=== PATIENT | male | born 1965 | race Caucasian/White ===

== ENCOUNTER 2017-02-02 17:38 | Emergency (ER) | payer BC, OTHER ==
[2017-02-02] MEDS ORDERED: Ketorolac Tromethamine 60 MG/2 ML VIAL ONE (18:38)
[2017-02-02] MEDS ORDERED: Diazepam 5 MG TAB ONE (18:38)
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
== END 2017-02-02 19:07 | disposition home or self-care (01) ==
LOC: ERS 17:38
DX: S13.9XXA Sprain of joints and ligaments of unspecified parts of neck, initial encounter (principal); M48.02 Spinal stenosis, cervical region; F32.9 Major depressive disorder, single episode, unspecified; V43.52XA Car driver injured in collision with other type car in traffic accident, initial encounter
CPT/HCPCS: 72125; 96372; J1885

== ENCOUNTER 2019-12-07 07:25 | Outpatient (CLI) | payer BC ==
--- NOTE | 2019-12-07 09:29 | RAD ---
CERVICAL SPINE 5 VIEWS INCLUDING FLEXION AND EXTENSION LATERAL VIEWS: HISTORY: Cervical spondylosis with myelopathy, bilateral leg weakness, and stumbling. COMPARISON: CT cervical spine 02/02/2017. FINDINGS: Anterior cervical fusion changes at C5, C6, and C7. Generalized spondylosis with disk-osteophytosis and facet arthrosis. No evidence for abnormal translation between flexion and extension. No prevert ebral soft tissue swelling. Portions of C1 and the odontoid are obscured on the AP open mouth view a nd C7 and T1 are partially obscured on the lateral views. IMPRESSION: Cervical spondylosis. Anterior cervical fusion changes at C5, C6, and C7. POS: [facility]
--- NOTE | 2019-12-07 10:43 | MRI ---
CERVICAL SPINE MRI WITHOUT CONTRAST: DATE: 12/07/2019. HISTORY: Weakness and numbness, radiculopathy, prior cervical spine surgery. TECHNIQUE: Multiplanar, multisequence MR imaging of the cervical spine is provided without contrast. FINDINGS: The sagittal STIR imaging demonstrates edematous degenerative end plate change involving the anterior C3 inferior end plate and the posterior C7 inferior end plate. No prevertebral soft tissue swelling . No anterolisthesis or retrolisthesis. Anterior diskectomy and fusion hardware are present at C5-6 and C6-7. C2-3: Facet and uncovertebral osteophyte formation noted, right greater than left. There is disk sp siri narrowing and disk desiccation. No significant central canal stenosis. Mild right neural forami nal stenosis. C3-4: There is disk space narrowing with disk desiccation, mild disk bulge, and mild central canal s tenosis. There is anterior osteophyte formation. Bilateral facet and uncovertebral osteophyte forma tion present with mild left and moderate right neural foraminal stenosis. C4-5: There is disk space narrowing with disk desiccation and disk bulge. There is a small central disk protrusion effacing the ventral thecal sac with a mild degree of central canal stenosis. Bilate ral facet and uncovertebral osteophyte formation noted, right greater than left. Mild bilateral neur al foraminal stenosis. C5-6: Mild bilateral facet hypertrophy with no significant central canal or neural foraminal stenosi s. C6-7: Bilateral facet and uncovertebral osteophyte formation. No central canal stenosis. Moderate right and mild left neural foraminal stenosis. C7-T1: There is disk space narrowing with disk desiccation and disk bulge effacing the ventral theca l sac. There is moderate central canal stenosis. Bilateral facet and uncovertebral osteophyte forma tion causes severe bilateral neural foraminal stenosis, right greater than left. There is volume loss involving the cervical cord at the C5-6 and C6-7 levels suggesting myelomalacia. IMPRESSION: Postoperative and degenerative change as detailed above. No significant stenosis is at the C6-7 leve l where there is significant central canal and bilateral neural foraminal stenosis. POS: [facility]
== END 2019-12-07 07:26 | disposition home or self-care (01) ==
LOC: TBSIIMAG 07:25
PROVIDERS: ATTEND Neurological Surgery
DX: M47.12 Other spondylosis with myelopathy, cervical region (principal); M48.02 Spinal stenosis, cervical region; Z98.1 Arthrodesis status
CPT/HCPCS: 72050; 72141

== ENCOUNTER 2019-12-08 21:08 | Emergency (ER) | payer BC ==
[2019-12-08 21:56] LABS: #Eosinphils 0.8 thou/uL (0.0-0.7); #Lymphocytes 1.6 thou/uL (1.20-3.40); #Monocytes 0.6 thou/uL (0.11-0.59); #Neutrophils 4.7 thou/uL (1.40-6.50); %Basophils 0.4 % (0.0-1.0); %Eosinophils 10.8 % (0.0-10.0); %Lymphocytes 20.4 % (21.0-51.0); %Monocytes 8.2 % (0.0-10.0); %Neutrophils 60.2 % (42.0-75.0); Hemoglobin 13.8 g/dL (14.0-18.0); Mean Corpuscular HGB CONC 33.9 g/dL (32.0-36.0); Mean Corpuscular Hemoglobin 31.4 pg (27.0-31.0); Mean Corpuscular Volume 92.8 fL (78.0-98.0); Mean Platelet Volume 6.9 fL (7.4-10.4); Platelet Count 261 thou/uL (130-400); RBC Distribution Width 11.9 % (11.5-14.5); White Blood Cell (WBC) Count 7.8 thou/uL (4.8-10.8)
[2019-12-08 22:15] LABS: ALT (SGPT) 16 U/L (8-55); AST (SGOT) 21 U/L (5-34); Albumin 4.2 g/dL (3.5-5.0); Alkaline Phosphatase 112 U/L (40-110); Anion Gap 14 mmol/L (10-20); BUN (Urea Nitrogen) 20 mg/dL (8.4-25.7); Bilirubin, Total 0.5 mg/dL (0.2-1.2); CK (CPK) 80 U/L (30-200); Calc. Creatinine Clearance 0 mL/min (70-130); Carbon Dioxide 27 mmol/L (22-29); Chloride 100 mmol/L (98-107); Estimated GFR-MDRD 37; Globulin 2.9 g/dL (2.4-3.5); Glucose 95 mg/dL (70-105); Potassium 4.1 mmol/L (3.5-5.1); Protein, Total 7.1 g/dL (6.0-8.3); Sodium 137 mmol/L (136-145)
--- NOTE | 2019-12-08 23:20 | CT ---
CT BRAIN WITHOUT CONTRAST: HISTORY: Fall, headache, neck pain COMPARISON: 11/05/2012 FINDINGS: No evidence of acute infarct, hemorrhage, midline shift or abnormal extra-axial fluid collections is seen. The ventricular size is appropriate and the basilar cisterns are patent. The bony calvarium is intact. The visualized paranasal sinuses and mastoid air cells are well aerated. IMPRESSION: No CT evidence of acute intracranial process.
== END 2019-12-08 23:24 | disposition home or self-care (01) ==
LOC: ERS 21:08
DX: E86.0 Dehydration (principal); F32.9 Major depressive disorder, single episode, unspecified; Z79.899 Other long term (current) drug therapy
CPT/HCPCS: 36415; 70450; 80053; 82550; 84484; 85025; 93005; 96360

== ENCOUNTER 2020-01-05 07:29 | Outpatient (CLI) | payer BC ==
--- NOTE | 2020-01-05 09:26 | MRI ---
MRI THORACIC SPINE WITHOUT CONTRAST: Date: 01/05/2020 INDICATION: Thoracic stenosis. Back pain. FINDINGS: Postoperative changes are noted in the lower cervical spine with plate and screws transfixing C5, C6, and C7 levels. The thoracic vertebra maintain normal height and alignment. Thoracic vertebral bodies exhibit normal signal. No edema. There is disc protrusion at C7-T1 which is incompletely evaluated on this study. This does appear to compress the anterior cord as seen on the sagittal image with central canal stenosis. At T1-T2, there is a mild disc bulge flattening the thecal sac. The anterior subarachnoid space is pr eserved with no evidence of cord impingement. At T2-T3, slightly more prominent diffuse disc bulge is seen which abuts the anterior cord. This is s lightly more pronounced to the right and there is evidence of right foraminal encroachment and narrow ing. Minimal disc bulge paracentrally on the left at T6-T7 flattens the anterior thecal sac on the left. N o cord impingement or central canal stenosis. At T9-T10, there is a small focal protrusion paracentrally on the left flattening the anterior thecal sac on the left and extending in the subarticular zone. No significant cord impingement. No other significant bulge or protrusion seen. Thoracic cord signal appears normal. IMPRESSION: Mild disc bulge/protrusions at several levels as described above. There is evidence of cord compressi on at C7-T1. Disc bulge abuts the cord at T2-T3 as described above. POS: [facility]
--- NOTE | 2020-01-05 09:38 | MRI ---
MRI LUMBAR SPINE WITHOUT CONTRAST: Date: 01/05/2020 INDICATION: Myelopathy. Back pain. FINDINGS: Lumbar vertebra maintain normal height and alignment. Vertebral body signal is normal. There are dege nerative disc changes, most prominent at L5-S1 with disc narrowing and degenerative end plate changes at this level. The other disc spaces are preserved with mild degenerative signal changes. L1-2: No significant disc bulge. Mild to moderate facet hypertrophy. No significant central canal or foraminal stenosis. L2-3: Mild diffuse disc bulge flattens the thecal sac. Moderate facet arthrosis and hypertrophy. The se changes compress the thecal sac resulting in mild to moderate central canal stenosis. No significa nt foraminal stenosis apparent L3-4: Mild diffuse disc bulge. Moderate facet hypertrophy with posterior epidural fat. These changes compress the thecal sac resulting in mild to moderate central canal stenosis. No significant foramin al stenosis. L4-5: Diffuse disc bulge. Moderate facet hypertrophy with posterior epidural fat. Mild central canal stenosis. Bilateral foraminal stenosis secondary to broad based disc bulge extending into the forami nal zones and the associated facet hypertrophy. L5-S1: Broad based disc bulge flattens the anterior thecal sac. Moderate facet hypertrophy. No signi ficant central canal stenosis. A disc osteophyte complex projects to the right and does encroach into the right foramina and appears to displace the exiting right L5 nerve root. IMPRESSION: Degenerative disc changes at each level as detailed above. POS: [facility]
== END 2020-01-05 07:30 | disposition home or self-care (01) ==
LOC: BICMRI 07:29
PROVIDERS: ATTEND Neurological Surgery
DX: M48.04 Spinal stenosis, thoracic region (principal); G95.9 Disease of spinal cord, unspecified; M50.23 Other cervical disc displacement, cervicothoracic region; M51.24 Other intervertebral disc displacement, thoracic region; M51.36 Other intervertebral disc degeneration, lumbar region; M51.37 Other intervertebral disc degeneration, lumbosacral region; G95.20 Unspecified cord compression
CPT/HCPCS: 72146; 72148

== ENCOUNTER 2020-02-17 06:55 | Day surgery (SDC) | payer BC ==
[2020-02-16 08:53] VITALS: BMI 25.0
[2020-02-17 08:40] VITALS: BP 125/81; TEMP 97.8
--- NOTE | 2020-02-17 09:12 | RAD ---
Cervical myelogram: 02/17/2020 HISTORY: Prior cervical spine surgery, bilateral upper extremity radiculopathy, bilateral lower extre mity weakness, clumsiness FINDINGS: Informed consent obtained prior to the procedure. [employer] imaging of the lumbar spine demonst rates disc space narrowing with degenerative endplate change and anterior osteophyte formation at L5-S1, and to a lesser degree, L4-5. [employer] imaging of the cervical spine demonstrates anterior discec jason and fusion hardware at C5-6/C6-7. There is disc space narrowing with degenerative endplate change and anterior osteophyte formation at C4-5 and C7-T1. Skin overlying the lumbar spine was prepped and draped in normal sterile fashion. Skin was anesthetiz ed at the L4 level with 1% buffered lidocaine. With intermittent fluoroscopic guidance, a 22-gauge spinal needle is advanced into the thecal sac and removal of the stylet yields clear cerebrospinal fl uid. Approximately 10 cc of [id number]-[id number] was injected, outlining nerve roots of the cauda equina and filling the thecal sac. Needle was then removed. The patient's head was tilted down to extend contras t media into the cervical region. The patient tolerated the procedure well. Exposure data: 564 mcg/sq m IMPRESSION: Successful cervical spine myelogram as detailed above.
[2020-02-17] MEDS ORDERED: Iopamidol 300 61% 50 ML VIAL FS ONE (09:23)
--- NOTE | 2020-02-17 11:22 | CT ---
CT myelogram cervical spine: 02/17/2020 HISTORY: Lower extremity weakness and clumsiness, bilateral upper extremity radiculopathy/finger numb ness TECHNIQUE: Axial CT imaging obtained at 2.5 mm intervals through the cervical spine following the adm inistration of intrathecal contrast media. Coronal and sagittal reformatted imaging obtained. FINDINGS: There is moderate degenerative change at the atlantoaxial interspace. The craniocervical ju nction is intact. There is mild retrolisthesis at C3-4 measuring in the 2 mm range. Mild anterolisthesis at C4-5 noted measuring in the 3 mm range. Imaged lung apices demonstrate no acute findings. The C1 ring, the dens, and the occipital condyles appear intact. Anterior discectomy and fusion hardware is present at the C5-6/C6-7 levels. C2-3: No significant central canal or neural foraminal stenosis. C3-4: There is disc space narrowing with mild disc bulge partially effacing the ventral thecal sac an d leading to a mild degree of central canal stenosis. There is a triangular osseous density along the anterior inferior corner of the C3 vertebral body which suggest an old fracture with associated o steophytosis. Mild bilateral uncovertebral osteophyte formation with mild bilateral neural foraminal stenosis noted. C4-5: Minimal disc bulge with partial effacement of the ventral thecal sac and no significant central canal or neural foraminal stenosis. C5-6: A small disc osteophyte complex is present with partial effacement of the ventral thecal sac an d mild central canal stenosis. No significant neural foraminal stenosis. C6-7: There is bilateral uncovertebral osteophyte formation, right greater than left, with moderate b ilateral neural foraminal stenosis, right greater than left. Small posterior left paracentral osteophyte formation noted with a mild/moderate degree of central canal stenosis. C7-T1: Bilateral uncovertebral osteophyte formation noted with severe bilateral neural foraminal sten osis. There is disc space narrowing and degenerative endplate change with anterior osteophyte formation. Disc osteophyte complex present with moderate central canal stenosis. No acute osseous abnormality. No worrisome lytic or blastic bone lesion. IMPRESSION: Postoperative and degenerative changes within the cervical spine as above.
== END 2020-02-17 09:42 | disposition home or self-care (01) ==
LOC: RAD 06:55
PROVIDERS: ATTEND Neurological Surgery
PROC: B02B1ZZ Computerized Tomography (CT Scan) of Spinal Cord using Low Osmolar Contrast (ICD-10-PCS; principal; 2020-02-17)
DX: M47.12 Other spondylosis with myelopathy, cervical region (principal); M48.02 Spinal stenosis, cervical region; I10 Essential (primary) hypertension; F32.9 Major depressive disorder, single episode, unspecified
CPT/HCPCS: 62302; 72126; Q9967

== ENCOUNTER 2025-03-03 15:05 | Outpatient (CLI) | payer BC | END 2025-03-03 15:06 | disposition home or self-care (01) | LOC: ULT 15:05 | PROVIDERS: ATTEND Urology | DX: R35.0 Frequency of micturition (principal); Z87.898 Personal history of other specified conditions; Z87.440 Personal history of urinary (tract) infections | CPT/HCPCS: 76770 ==